=== PATIENT | female | born 1955 | race Caucasian/White ===

== ENCOUNTER → 2018-03-17 | Outpatient (CLI) | payer MEDICARE ==
[~2018-03-17] MED LIST: ALBU18HF IH; AMIO200T PO; APIX5TAB PO; ASPI-484 PO; ASPI-667 PO; BENZ1LOZ49 MM; BUDE0.25 IH; BUDE0.5A3 IH; BUDE10.2 IH; CARV6.25 PO; CEPH-350 PO; CETI10TA18 PO; CHOL200074 PO; CYAN10005 PO; DIAZ5TAB PO; DICL75TA2 PO; DIGO125T81 PO; DILT180C2 PO; DOCU-123 PO; DULO60CA PO; DULO60CA7 PO; FLUT1DIS3 IH; FOLI1TAB21 PO; FURO-81 PO; FURO40TA4 PO; GABA600T2 PO; HYDR10TA4 PO; HYDR200T5 PO; Hydrocodone/Acetaminophen PO; IPRA0.2S34 NEB; IPRA3AMP25 IH; L. A1CAP12 PO; LISI40TA PO; LORA10TA75 PO; LORA2TAB PO; METH2.5T PO; METO10TA5 PO; METO25TA4 PO; METO50TA6 PO; MONT10TA9 PO; NITR100C58 PO; OMEP20CA12 PO; ONDA4TAB7 PO; ONDA8TAB9 PO; POLY17PO5 PO; POTA10TA6 PO; POTA20TA8 PO; PRAV10TA2 PO; PREG75CA PO; QUET50TA5 PO; RAMI2.5C28 PO; RIVA10TA PO; ROPI1TAB2 PO; SOTA80TA PO; SPIR25TA PO; TRAM-47 PO; VENL75CA PO; ZOLP5TAB PO; [UNRECOGNIZED DRUG - CODE] PO
[2018-03-17 01:55] LABS: BILIRUBIN,URINE NEGATIVE (NEGATIVE); UROBILINOGEN,URINE NORMAL (NEGATIVE)
[2018-03-17 02:01] LABS: UA COLOR YELLOW (YELLOW)
[2018-03-17 02:02] LABS: APPEARANCE,URINE HAZY (CLEAR)
== END | disposition home or self-care (01) ==
LOC: NPLAB 01:00
PROVIDERS: ATTEND Family Medicine
DX: R30.0 Dysuria (principal)
CPT/HCPCS: 81000; 87077; 87086; 87186

== ENCOUNTER → 2018-04-06 | Outpatient (CLI) | payer MEDICARE | END | disposition home or self-care (01) | LOC: LAB 15:15 | PROVIDERS: ATTEND Family Medicine | DX: N39.0 Urinary tract infection, site not specified (principal) | CPT/HCPCS: 36415; 82140 ==